=== PATIENT | male | born 1950 | race Caucasian/White ===

== ENCOUNTER 2017-07-17 16:20 | Emergency (ER) | payer MEDICARE, OTHER, SELFPAY ==
[2017-07-17 16:21] VITALS: BP 127/74; PULSE 95; RESP 16; TEMP 36.4; O2SAT 97; BMI 28.5
--- NOTE | 2017-07-17 16:43 | ED.VISSUMM ---
- ER Visit Summary Date of Service: 07/17/17 Chief Complaint: Right small finger laceration History of Present Illness: The patient is a 67 M dominant male well shy to his right small finger in a minivan door about an hour ago. Denies other injuries. Denies numbness. Unsure of his last tetanus shot hence it will be updated. Physical Examination: Criteria for CT older male no acute distress. Vital signs are stable afebrile. HEENT exam unremarkable. Lungs clear to auscultation bilaterally. Heart regular rate and rhythm no murmur. Chest nontender. Abdomen soft nontender. Extremities he is moving all 4 extremities. Neurovascular intact. The palmar aspect of his right small finger has a laceration which will need to be repaired. However he has full range of motion all digits of the right hand. No bony deformity. No numbness or tingling. Normal touch sensation. No significant bleeding at this time. The laceration does involve the skin and subcu tissue. Does not appear to have any tendon or bone or joint involvement. Neurologic exam is normal. Test Results: None Emergency Department Course and Treatment: Right small finger laceration repair: Local anesthetic with lidocaine. Explored wound. Washed with Shur-Clens and saline. No foreign bodies noted. I placed 4 simple interrupted 4-0 Ethilon sutures proper hemostasis wound closure obtained patient tolerated procedure well. Bacitracin and tube gauze dressing was applied. I discussed with the patient and his wound care. Suture removal in 10 days. His is a retired nurse will take the stitches out. Treatment Plan: [] Disposition: Discharged Impression: Acute right small finger laceration 3 cm with ER repair Please return to be tetanus updated This note was generated with [employer] dictation software. It may contain incorrect words, spelling, and punctuation that were not noted in review of the chart prior to signing ED Disposition - Plan for ED Patient: Chief Complaint: Upper Extremity Injury [facility]errals: [facility] [Primary Care Provider] -
[2017-07-17] MEDS: Diphth,Pertuss(Acell),Tet Vac 0.5 ML Vial IM (17:00)
--- NOTE | 2017-07-17 17:59 | ED.DEP ---
ED Disposition - Plan for ED Patient: Disposition: Home or Assisted Living Chief Complaint: Upper Extremity Injury Instructions: ED Laceration Hand Referrals: [facility] [Primary Care Provider] - 10 Day for suture removal Additional Instructions: Clean daily. Apply antibiotic ointment daily. Return if any signs of infection. Suture removal in 10 days.
[2017-07-17 18:05] VITALS: PULSE 74; RESP 18; O2SAT 95
== END 2017-07-17 18:06 | disposition home or self-care (01) ==
PROVIDERS: Emergency Provider Emergency Medicine
DX: S61.216A Laceration without foreign body of right little finger without damage to nail, initial encounter (principal); X58.XXXA Exposure to other specified factors, initial encounter; Y93.9 Activity, unspecified
CPT/HCPCS: 12002; 90471; 90715; 99283

== ENCOUNTER → 2019-12-10 07:07 | Outpatient (CLI) | payer MEDICARE, SELFPAY ==
--- NOTE | 2019-12-10 07:28 | MRI_ITS ---
STUDY: MRI LUMBAR SPINE WITHOUT CONTRAST REASON FOR EXAM: Male, 69 years old. low back pain into L hip x 2 years TECHNIQUE: Standardized fat and water weighted pulse sequences were obtained in the sagittal and axial planes. COMPARISON: None FINDINGS: Normal lumbar lordosis. There is scoliosis Normal conus medullaris that terminates at the L1 L1-2: There is moderate disc space narrowing and endplates spondylosis. There is moderate disc osteophyte complex and facet arthropathy asymmetric to the right with moderate right lateral recess and foraminal stenosis. There is mild central canal and mild left foraminal stenosis. L2-3: There is severe disc space narrowing and endplates spondylosis. There is a moderate disc osteophyte complex and facet arthropathy asymmetric to the right with moderate right foraminal stenosis. There is mild central canal and mild left foraminal stenosis. L3-4: There is moderate disc space narrowing and endplates spondylosis. Moderate disc osteophyte complex and facet arthropathy asymmetric to the left with moderate left foraminal stenosis. There is mild central canal and mild right foraminal stenosis. L4-5: There is moderate disc space narrowing and endplates spondylosis. Moderate disc osteophyte complex and facet arthropathy asymmetric to the left with moderate left lateral recess and severe left foraminal stenosis. There is moderate central canal stenosis. There is mild right foraminal stenosis. L5-S1: There is mild disc space narrowing and endplates spondylosis. There is mild disc osteophyte complex and facet arthropathy without significant central canal stenosis. There is moderate right and mild left foraminal stenosis. Normal visualized sacral ala. MRI/Spine Lumbar (Routine) IMPRESSION: Scoliosis and multilevel degenerative changes. L1/L2: Moderate right lateral recess and foraminal stenosis. L2/L3: Moderate right foraminal stenosis. L3/L4: Moderate left foraminal stenosis. L4/L5: Moderate left lateral recess and severe left foraminal stenosis. Moderate central canal stenosis. L5/S1: Moderate right foraminal stenosis. Electronically Signed: Jeannie Beasley MD at 8:28 EDT Tel , Service support ,
== END ==
PROVIDERS: Referring Provider Anesthesiology Pain Medicine; Visit Provider Anesthesiology Pain Medicine
DX: M54.9 Dorsalgia, unspecified (principal); M79.606 Pain in leg, unspecified
CPT/HCPCS: 72148

== ENCOUNTER 2020-10-02 10:30 | Outpatient (RCR) | payer MEDICARE, SELFPAY ==
--- NOTE | 2020-09-01 13:04 | HP.PTEVAL ---
Patient's Visit Information DILCIA CHATTERJEE is a 70 year old M referred to Physical Therapy by JAMAAL GARCIA with a diagnosis of RADICULOPATHY ,LUMBAR REGION. Date of Evaluation: 09/01/20 Physical Therapist: Krishna Cortez, PT, Cert MDT, OCS - Visit Plan Frequency: 2x /Week Duration: 4 Weeks Plan: PT INTERVETIONS LE FLEXABLITY,DLS,LE STRENGTHENING,POSTURAL EX'S,ENDURANCE PROGRAM - Subjective This 70 y/o male presents to physical therapy with lumbar surgery. Patient has had lumbar pain and right leg many years. Intially ,tried chiropractor ,pain management with epidural injections with min relieve. Patient seen Dr Garcia . Patient had MRI lumbar HNP,stenosis . Thus underwent s/p s/p L2 -S1 posteror instrumentation fusion with lateral athrodesis.,L3-S1 laminectomy with bilateral foraminotomies,,L4-5 interbody fusion on May 30 2020 at [facility] for 3 days with FWW and lumbar brace.Patient had home PT for 2weeks. Patient seen last Tuesday wean off.Patient has no pain or parathesia/tingling. Bowel/bladder -. Pain affects sleeping. Meds TRAMADOL.. Patient uses cane for balance. Aggraveting factors with weaknss walking ,staning affects ADLS and function esprcially legs. Patient surgery affects QOL and function.COMORBITIES: Right TKR,LOBECTOMY. SOCAIL: . VOCATION: retired - Objective POSTURE: mild foward posture. NEURO: denies paratesia/ingling,reflexes L3-4,L4-5,L5-S1 1/3. SYMMTRIES: alighn. PALAPTION: general tenderness L-S. GAIT: ambulated with cane with 2 points gait mild fowad posture. BALANCE: good -. LUMBAR ROM: flexion mod loss ,extension mod/severe loss extension ,side glides mod loss. MMT: quads/hams 4-/5,hip abd/flexion 3+/5,ankle 4/5. FLEXABLITY: hams mod tight - Goals Goal 1:: I with HEP Goal Time Frame: 4-6 Weeks Goal 2:: Improve posture for ADL'S Goal Time Frame: 4-6 Weeks Goal 3:: Patient to improve gait with/without cane with increase community distances Goal Time Frame: 4-6 Weeks Goal 4:: Patient to improve lumbar ROM for function of recovery Goal Time Frame: 4-6 Weeks Goal 5:: Patient increase strength of quads/hams 4/5,hip flexion 4-/5 to improve gait. Goal Time Frame: 4-6 Weeks Goal 6:: Patient to improve back owestry score by 5 points or > to improve QOL. Goal Time Frame: 4-6 Weeks - Rehabilitation Potential Physical Therapy Diagnosis: This patient underwent s/o lumbar surgery May 30 2020 with weakness in legs,decrease gait ,ROM and endurance thus will benifir from skilled PT Rehabilitation Potential: Good - Anticipated Interventions Patient/Client Instruction: Educate patient on: Condition, Plan of Care For the Purpose of:: To decrease pain, To increase ROM, To improve ability to perform ADL's, To increase tolerance to activity/condition/position, To improve ability of physical actions for home/community/work/leisure, To improve gait and locomotor functions, To increase flexibility/ROM, To improve endurance, To improve health and function, To improve ability to perform tasks related to life management Therapeutic Exercise to Include: Strength training, Body mechanics, Postural training, Flexibilty training, Dynamic Lumbar Stabilization Comment: BLE For the Purpose of:: To decrease pain, To increase ROM, To improve muscle performance and motor function, To improve ability to perform ADL's, To increase tolerance to activity/condition/position, To improve ability of physical actions for home/community/work/leisure, To improve health of tissue, To decrease soft tissue restriction, To increase flexibility/ROM, To improve endurance, To improve balance, To improve ability to perform tasks related to life management Thank you for the opportunity to evaluate your patient. For Medicare and Medicare HMO plans, please review the plan of care and approve it. It will need to be FAXED BACK to us at [phone] for Medicare purposes. For Medicare only, by signing this I certify the plan of care. Please let me know if there are questions or concerns regarding this plan of care. Physician Signature: Date:
--- NOTE | 2020-10-02 11:16 | HP.PTDCSUM ---
It has been my pleasure to treat DILCIA CHATTERJEE referred by JAMAAL GARCIA, with the diagnosis of RADICULOPATHY ,LUMBAR REGION for a total of 9 visit(s). Discharge Date: 10/02/20 Please see the following information for a summary of their discharge status. Subjective: Doing good no pain % Improvement: 80 Objective/Function: POSTURE: WFL. GAIT: NORMAL MONICA RECIPROCAL PATTERN. NEURO: INTACT. MMT: QUADS/HAMS/HIP 4/5,4/5 ANKLE. LUMBAR ROM: FLEXION MIN,EXTENSION MIN/MOD LOSS. FLEXABLITY: HAMS MILD TIGHT Goal 1:: I with HEP Goal Progress: Goal Met Goal 2:: Improve posture for ADL'S Goal Progress: Goal Met Goal 3:: Patient to improve gait with/without cane with increase community distances Goal Progress: Goal Met Goal 4:: Patient to improve lumbar ROM for function of recovery Goal Progress: Goal Met Goal 5:: Patient increase strength of quads/hams 4/5,hip flexion 4-/5 to improve gait. Goal Progress: Goal Met Goal 6:: Patient to improve back owestry score by 5 points or > to improve QOL. Goal Progress: Goal Met Plan: d/c Discharge Comments: HEP If there are questions or concerns regarding this patient's physical therapy, please feel free to call me at [phone]. Thank you for the referral of this patient. Sincerely, Krishna Cortez, PT, Cert MDT, OCS
== END 2020-10-02 19:00 | disposition home or self-care (01) ==
LOC: PT 10:30
DX: M54.16 Radiculopathy, lumbar region (principal)
CPT/HCPCS: 97110; 97162

== ENCOUNTER → 2022-02-02 | Outpatient (CLI) | payer MEDICARE, SELFPAY ==
[2022-02-02 15:28] LABS: Absolute Neutrophil Count 4.4 X10^3/uL (2.0-7.7); Basophil# 0.06 X10^3/uL; Basophil% 0.8 % (0-1); Eosinophils% 1.3 % (0-5); Hematocrit 47.1 % (40-54); Hemoglobin 16.4 g/dL (13.0-16.5); Lymphocyte % 30.3 % (19-41); Mean Corp Hgb Conc 34.8 g/dL (32-36); Mean Corpuscular Hgb 33.5 pg (27.0-32.0); Mean Corpuscular Volume 96.3 fL (80-94); Mean Platelet Vol. 9.7 fl (6.2-12.0); Monocyte# 0.71 X10^3/uL; NRBC Flagged by Analyzer 0 % (0-5); Neutrophil # 4.42 X10^3/uL (2.7-7.7); Neutrophil % 55.8 % (47-70); Platelet Count 281 K/mm3 (150-450); RBC Distribution Width CV 13.2 % (11.6-14.6); RBC Distribution Width SD 47.2 fl (35.1-43.9); Red Blood Count 4.89 M/mm3 (4.6-6.2); White Blood Count 7.9 K/mm3 (4.4-11.0)
[2022-02-02 15:41] LABS: Erythrocyte Sedimentation Rate 15 mm/hr (0-20)
[2022-02-02 15:48] LABS: CRP 3.96 mg/L (0.0-3.0)
== END | disposition home or self-care (01) ==
LOC: MTLAB 11:31
PROVIDERS: Referring Provider Orthopaedic Surgery; Visit Provider Orthopaedic Surgery
DX: M17.0 Bilateral primary osteoarthritis of knee (principal); N18.9 Chronic kidney disease, unspecified
CPT/HCPCS: 36415; 85025; 85652; 86140

== ENCOUNTER → 2022-02-15 | Outpatient (CLI) | payer MEDICARE, SELFPAY ==
[2022-02-15 12:39] LABS: Synovial Fld Mononuclear WBC # 0.364 10^3/ul; Synovial Fld Mononuclear WBC % 46.5 %; Synovial Fld Polynuclear WBC # 0.419 10^3/uL; Synovial Fld Polynuclear WBC % 53.5 %
[2022-02-15 12:42] LABS: AUTO B FLUID DILUENT BKGD CT WBC <0.1 RBC <0.01 (W<.1,R<.01); Appearance /Synovial Fluid Sl Cl (CLEAR); Color / Synovial Fluid Yellow (Pale Yellow); RBC /Synovial Fluid 0.004 10^6/uL (0); Viscosity / Synovial Fluid Mod. Viscous (HIGH)
[2022-02-15 12:43] LABS: Source / Synovial Fluid R KNEE
[2022-02-15 13:39] LABS: Lymph 69 %; Monocyte /Synovial Fluid 18 %; Neutrophil 3 % (0-25); Other Cell /Synovial Fluid 10 %
[2022-02-15 13:41] LABS: Body Fluid QC Type(s) BF1Q
[2022-02-16 13:00] LABS: Pathologist Comment Reviewed
== END | disposition home or self-care (01) ==
PROVIDERS: Visit Provider Specialist
DX: M25.561 Pain in right knee (principal); Z96.651 Presence of right artificial knee joint
CPT/HCPCS: 87015; 87070; 87075; 87102; 87116; 87205; 87206; 89050; 89051

== ENCOUNTER → 2023-12-07 | Outpatient (CLI) | payer MEDICARE, SELFPAY ==
--- NOTE | 2023-12-07 08:58 | EKG12_ITS ---
Test Reason : PREOP Blood Pressure : / mmHG Vent. Rate : 068 BPM Atrial Rate : 068 BPM P-R Int : 162 ms QRS Dur : 084 ms QT Int : 380 ms P-R-T Axes : 074 010 020 degrees QTc Int : 404 ms Normal sinus rhythm Normal ECG Confirmed by JUAN AGUILAR, CORBY ([id number]), desk editor BARNEY VOSS ([id number]) on 12/08/2023 10:38:14 A M Referred By: Kiko Weber Confirmed By:JENNY MARTINEZ MD
[2023-12-07 09:41] LABS: Absolute Lymphocyte Count 2.35 X10^3/uL (0.83-4.51); Absolute Neutrophil Count 3.2 X10^3/uL (2.0-7.7); Basophil# 0.06 X10^3/uL; Basophil% 0.9 % (0-1); Eosinophil# 0.16 X10^3/uL; Eosinophils% 2.4 % (0-5); Hematocrit 45.4 % (40-54); Hemoglobin 15.3 g/dL (13.0-16.5); Lymphocyte # 2.35 X10^3/ul (0.83-4.51); Lymphocyte % 34.6 % (19-41); Mean Corp Hgb Conc 33.7 g/dL (32-36); Mean Platelet Vol. 9.5 fl (6.2-12.0); Monocyte# 0.83 X10^3/uL; Monocyte% 12.2 % (0-10); NRBC Flagged by Analyzer 0 % (0-5); Neutrophil % 47.1 % (47-70); Platelet Count 256 K/mm3 (150-450); RBC Distribution Width CV 12.7 % (11.6-14.6); RBC Distribution Width SD 44.6 fl (35.1-43.9); Red Blood Count 4.78 M/mm3 (4.6-6.2); White Blood Count 6.8 K/mm3 (4.4-11.0)
[2023-12-07 10:42] LABS: Anion Gap 6 (5-15); BUN 25 mg/dL (7-18); BUN/Creat Ratio 16.6 RATIO (10-20); Calcium,Total 9.7 mg/dL (8.5-10.1); Chloride 105 mmol/L (98-107); Creatinine, Serum 1.51 mg/dL (0.70-1.30); EST Glomerular Filtration Rate 48 mL/min (>60); Est Glom Filt Rate - Afr Amer 58 mL/min (>60); Glucose 109 mg/dL (74-106); Potassium 4.6 mmol/L (3.5-5.1); Sodium Level 136 mmol/L (136-145)
== END | disposition home or self-care (01) ==
PROVIDERS: PCP Nurse Practitioner Adult Health; Referring Provider Specialist; Visit Provider Specialist
DX: Z01.818 Encounter for other preprocedural examination (principal)
CPT/HCPCS: 36415; 80048; 85025; 93005

== ENCOUNTER → 2025-01-03 | Outpatient (CLI) | payer MEDICARE, SELFPAY ==
[2025-01-03 16:02] LABS: CRP 7.86 mg/L (0.0-3.0)
[2025-01-03 16:07] LABS: Hematocrit 44.1 % (40-54); Hemoglobin 15.1 g/dL (13.0-16.5); Immature Granulocytes Count 0.330 X10^3/uL (0.0-0.0); Mean Corp Hgb Conc 34.2 g/dL (32-36); Mean Corpuscular Volume 95.2 fL (80-94); Mean Platelet Vol. 10.0 fl (6.2-12.0); NRBC Flagged by Analyzer 0 % (0-5); Platelet Count 267 K/mm3 (150-450); RBC Distribution Width CV 13.3 % (11.6-14.6); RBC Distribution Width SD 46.5 fl (35.1-43.9); Red Blood Count 4.63 M/mm3 (4.6-6.2); White Blood Count 8.0 K/mm3 (4.4-11.0)
== END | disposition home or self-care (01) ==
PROVIDERS: PCP Nurse Practitioner Adult Health; Referring Provider Specialist; Visit Provider Specialist
DX: Z09 Encounter for follow-up examination after completed treatment for conditions other than malignant neoplasm (principal); Z96.652 Presence of left artificial knee joint
CPT/HCPCS: 36415; 85025; 85652; 86140